=== PATIENT | female | born 1965 | race Caucasian/White ===

== ENCOUNTER → 2023-07-18 | Outpatient (CLI) | payer OTHER | END | disposition home or self-care (01) | LOC: CT 08:57 | PROVIDERS: ATTEND Internal Medicine | DX: J43.8 Other emphysema (principal); F17.210 Nicotine dependence, cigarettes, uncomplicated; K44.9 Diaphragmatic hernia without obstruction or gangrene; I25.10 Atherosclerotic heart disease of native coronary artery without angina pectoris ==

== ENCOUNTER → 2023-12-22 | Outpatient (CLI) | payer OTHER | END | disposition home or self-care (01) | LOC: CARD 14:49 | PROVIDERS: ATTEND Internal Medicine | DX: I08.0 Rheumatic disorders of both mitral and aortic valves (principal); I48.91 Unspecified atrial fibrillation ==

== ENCOUNTER 2024-01-16 16:48 | Inpatient (IN) | payer OTHER ==
[~2024-01-16] VITALS: Ht 180.3 cm; Wt 72.1 kg
[2024-01-16 17:10] VITALS: BP 140/89
[2024-01-16] MEDS ORDERED: SODIUM CHLORIDE 0.9% 1,000 ML IV ONE ×3 (17:15→21:38)
[2024-01-16 17:44] LABS: BASO % 0.1 % (0.0-1.0); EOS # 0.1 10*3/uL (0.0-0.4); EOS % 1.2 % (1.0-4.0); HEMATOCRIT 42.3 % (37.0-47.0); LYMPH # 1.2 10*3/uL (1.3-4.4); LYMPH % 14.1 % (27.0-41.0); MEAN CELL VOLUME 85.3 fl (81.0-99.0); MEAN CORPUSCULAR HGB 30.4 pg (27.0-31.0); MEAN CORPUSCULAR HGB CONC 35.7 g/dl (33.0-37.0); MEAN PLATELET VOLUME 10.4 fl (9.6-12.3); MONO # 0.7 10*3/uL (0.1-1.0); MONO % 7.9 % (3.0-9.0); NEUT # 6.3 10*3/uL (2.3-7.9); NEUT % 76.2 % (47.0-73.0); PLATELET COUNT AUTOMATED 225 10*3/uL (130-400); RED BLOOD COUNT 4.96 10*6/uL (4.10-5.10); RED CELL DISTRI WIDTH 12.4 % (0-14.5); WHITE BLOOD COUNT 8.2 10*3/uL (4.8-10.8)
[2024-01-16 18:01] LABS: BILIRUBIN Negative (Negative); BLOOD 2+ (Negative); CLARITY Clear (Clear); COLOR Yellow (Yellow); GLUCOSE 3+ (Negative); KETONE Negative (Negative); LEUKO ESTERASE Negative (Negative); NITRITE Negative (Negative); SPECIFIC GRAVITY >= 1.030 (1.001-1.030)
[2024-01-16 18:08] LABS: BACTERIA TRACE
[2024-01-16 18:45] LABS: ALKALINE PHOSPHATASE 177 U/L (46-116); BUN 13 mg/dl (9-23); CHLORIDE 92 mmol/L (98-107); LIPASE 45 U/L (12-53); SGPT/ALT 25 U/L (5-49); TOTAL PROTEIN 7.5 gm/dL (6.0-8.0)
[2024-01-16 18:47] LABS: POTASSIUM 4.3 mmol/L (3.4-5.1)
[2024-01-16] MEDS ORDERED: DILTIAZEM 24HR180 MG PO (20:05)
[2024-01-16] MEDS ORDERED: ELIQUIS5 M1 PO (20:06)
[2024-01-16] MEDS ORDERED: DIGOXIN125 MCG PO (20:06)
[2024-01-16] MEDS ORDERED: CLOPIDOGREL75 MG PO (20:07)
[2024-01-16] MEDS ORDERED: PANTOPRAZOLE SO40 MG PO (20:07)
[2024-01-16] MEDS ORDERED: ATORVASTATIN CA40 M1 PO (20:07)
[2024-01-16] MEDS ORDERED: PROPAFENONE HC300 MG PO (20:08)
[2024-01-16] MEDS ORDERED: CARVEDILOL25 MG PO (20:08)
[2024-01-16] MEDS ORDERED: ANORO ELLIPTA1 EACH INH (20:09)
[2024-01-16] MEDS ORDERED: PROAIR DIGIHAL90 MCG INH (20:09)
[2024-01-16] MEDS ORDERED: INSULIN REGULAR IN 0.9 % NACL 100 ML IV ONE (20:20)
[2024-01-16] MEDS ORDERED: POTASSIUM CHLORIDE 20 MEQ TAB PO PRN (21:00)
[2024-01-16] MEDS ORDERED: Ondansetron Hydrochloride 4 MG/2 ML VIAL IV PRN (21:00)
[2024-01-16] MEDS ORDERED: INSULIN REGULAR IN 0.9 % NACL 100 ML IV SCH (21:00)
[2024-01-16] MEDS ORDERED: POTASSIUM CHLORIDE 20 MEQ/100 ML BAG IV PRN (21:00)
[2024-01-16] MEDS ORDERED: SODIUM CHLORIDE 0.45% 1,000 ML IV ONE (21:10)
[2024-01-16 21:29] VITALS: BP 127/73
[2024-01-16] MEDS ORDERED: FLUCONAZOLE 150 MG TAB PO ONE (21:30)
[2024-01-16 21:45] VITALS: BP 125/69
[2024-01-16 22:14] LABS: BUN 10 mg/dl (9-23); CHLORIDE 103 mmol/L (98-107)
[2024-01-16 22:15] LABS: POTASSIUM 3.2 mmol/L (3.4-5.1)
[2024-01-16] MEDS ORDERED: DEXTROSE 5% SALINE 0.45% 1,000 ML IV SCH (22:30)
[2024-01-17] VITALS (7 sets, daily range): BP systolic 92–153; BP diastolic 51–81
[2024-01-17 02:36] LABS: BUN 7 mg/dl (9-23); CHLORIDE 109 mmol/L (98-107); POTASSIUM 3.4 mmol/L (3.4-5.1)
[2024-01-17 05:38] LABS: BUN 7 mg/dl (9-23); CHLORIDE 110 mmol/L (98-107); POTASSIUM 3.4 mmol/L (3.4-5.1)
[2024-01-17] MEDS ORDERED: DEXTROSE 5% SALINE 0.45% 1,000 ML IV SCH (05:45)
[2024-01-17 05:59] LABS: BASO % 0.1 % (0.0-1.0); EOS # 0.1 10*3/uL (0.0-0.4); HEMATOCRIT 35.5 % (37.0-47.0); LYMPH # 1.7 10*3/uL (1.3-4.4); LYMPH % 24.1 % (27.0-41.0); MEAN CELL VOLUME 85.3 fl (81.0-99.0); MEAN CORPUSCULAR HGB CONC 35.2 g/dl (33.0-37.0); MONO # 0.8 10*3/uL (0.1-1.0); MONO % 10.9 % (3.0-9.0); NEUT # 4.3 10*3/uL (2.3-7.9); NEUT % 62.3 % (47.0-73.0); PLATELET COUNT AUTOMATED 195 10*3/uL (130-400); RED BLOOD COUNT 4.16 10*6/uL (4.10-5.10); RED CELL DISTRI WIDTH 12.5 % (0-14.5); WHITE BLOOD COUNT 6.9 10*3/uL (4.8-10.8)
[2024-01-17] MEDS ORDERED: Pantoprazole Sodium 40 MG TAB PO SCH (06:00)
[2024-01-17] MEDS ORDERED: Insulin Glargine, Recombinan 1 UNIT/0.01 ML SC SCH (08:25)
[2024-01-17] MEDS ORDERED: Ondansetron Hydrochloride 4 MG/2 ML VIAL IV ONE (08:25)
[2024-01-17] MEDS ORDERED: APIXABAN 5 MG TAB PO SCH ×2 (08:56→10:00)
[2024-01-17] MEDS ORDERED: CARVEDILOL 25 MG TAB PO SCH ×3 (08:56→10:00)
[2024-01-17] MEDS ORDERED: Clopidogrel Hydrogen Sulfate 75 MG TAB PO SCH ×2 (10:00→18:00)
[2024-01-17] MEDS ORDERED: Ceftriaxone Sodium 1 GM in SYRINGE INFUSION 10 ML IV SCH (10:00)
[2024-01-17] MEDS ORDERED: ANORO ELLIPTA INH SCH (10:00)
[2024-01-17] MEDS ORDERED: DILTIAZEM CD 180 MG CAP PO SCH ×2 (10:00→18:00)
[2024-01-17] MEDS ORDERED: Propafenone Hydrochloride 150 MG TAB PO SCH (10:00)
[2024-01-17 10:16] LABS: BUN 7 mg/dl (9-23); CHLORIDE 110 mmol/L (98-107); POTASSIUM 3.5 mmol/L (3.4-5.1)
[2024-01-17] MEDS ORDERED: DEXTROSE 10 % IN WATER 250 ML IV PRN (11:45)
[2024-01-17] MEDS ORDERED: Miconazole Nitrate 2% 15 GM TUBE T SCH (13:45)
[2024-01-17] MEDS ORDERED: DIGOXIN 125 MCG TAB PO SCH ×2 (14:00→18:00)
[2024-01-17] MEDS ORDERED: INSULIN LISPRO 1 UNIT/0.01 ML SQ SCH (16:30)
[2024-01-17] MEDS ORDERED: ATORVASTATIN CALCIUM 40 MG TABLET PO SCH (18:00)
[2024-01-18] VITALS: BP 113/76
[2024-01-18 05:00] LABS: BUN 7 mg/dl (9-23); CHLORIDE 108 mmol/L (98-107); POTASSIUM 3.6 mmol/L (3.4-5.1)
[2024-01-18 08:00] VITALS: BP 117/72
[2024-01-18] MEDS ORDERED: LANTUS SOL100 UNIT/1 SC (09:39)
[2024-01-18] MEDS ORDERED: METFORMIN HCL500 M2 PO (09:39)
[2024-01-18] MEDS ORDERED: OMNICEF300 MG PO (11:04)
[2024-01-18 12:00] VITALS: BP 120/68
== END 2024-01-18 12:45 | disposition home or self-care (01) | DRG 637 ==
LOC: ED 16:48 → ICCU 20:44 → EDHOLD 20:44 → ICCU 21:22
PROVIDERS: Family Medicine; Internal Medicine; Student in an Organized Health Care Education/Training Program; ADMIT Internal Medicine; ATTEND Internal Medicine
DX: E11.00 Type 2 diabetes mellitus with hyperosmolarity without nonketotic hyperglycemic-hyperosmolar coma (NKHHC) (principal); N17.0 Acute kidney failure with tubular necrosis; N39.0 Urinary tract infection, site not specified; I25.10 Atherosclerotic heart disease of native coronary artery without angina pectoris; E11.65 Type 2 diabetes mellitus with hyperglycemia; B37.31 Acute candidiasis of vulva and vagina; F17.210 Nicotine dependence, cigarettes, uncomplicated; I48.0 Paroxysmal atrial fibrillation; R79.89 Other specified abnormal findings of blood chemistry; E87.8 Other disorders of electrolyte and fluid balance, not elsewhere classified; Z71.6 Tobacco abuse counseling; Z82.49 Family history of ischemic heart disease and other diseases of the circulatory system; Z83.6 Family history of other diseases of the respiratory system

== ENCOUNTER → 2024-01-24 | Outpatient (CLI) | payer OTHER ==
[~2024-01-24] MED LIST: ANORO ELLIPTA1 EACH INH; ATORVASTATIN CA40 M1 PO; CARVEDILOL25 MG PO; CLOPIDOGREL75 MG PO; DIGOXIN125 MCG PO; DILTIAZEM 24HR180 MG PO; ELIQUIS5 M1 PO; LANTUS SOL100 UNIT/1 SC; METFORMIN HCL500 M2 PO; OMNICEF300 MG PO; PANTOPRAZOLE SO40 MG PO; PROAIR DIGIHAL90 MCG INH; PROPAFENONE HC300 MG PO; Regadenoson 0.4 MG/5 ML SYR IV ONE; Technetium Tc 99M Tetrofosmi 0.23 MG KIT IJ SCH
== END | disposition home or self-care (01) ==
LOC: CARD 00:32
PROVIDERS: ATTEND Internal Medicine
DX: I47.29 Other ventricular tachycardia (principal); R94.31 Abnormal electrocardiogram [ECG] [EKG]; R07.9 Chest pain, unspecified

== ENCOUNTER → 2024-02-16 | Outpatient (CLI) | payer OTHER ==
[~2024-02-16] MED LIST changes: -Regadenoson 0.4 MG/5 ML SYR IV ONE; -Technetium Tc 99M Tetrofosmi 0.23 MG KIT IJ SCH
== END | disposition home or self-care (01) ==
LOC: MAMMO 07:52
PROVIDERS: ATTEND Internal Medicine
DX: Z12.31 Encounter for screening mammogram for malignant neoplasm of breast (principal)

== ENCOUNTER 2024-07-14 20:12 | Inpatient (IN) | payer OTHER ==
[~2024-07-14] VITALS: Ht 180.3 cm; Wt 69.9 kg
[2024-07-14 20:41] VITALS: BP 80/56
[2024-07-14] MEDS ORDERED: SODIUM CHLORIDE 0.9% 1,000 ML IV ONE (20:50)
[2024-07-14 21:03] LABS: BASO % 0.1 % (0.0-1.0); EOS # 0.4 10*3/uL (0.0-0.4); EOS % 4.2 % (1.0-4.0); HEMATOCRIT 35.4 % (37.0-47.0); LYMPH # 0.3 10*3/uL (1.3-4.4); LYMPH % 3.4 % (27.0-41.0); MEAN CELL VOLUME 94.1 fl (81.0-99.0); MEAN CORPUSCULAR HGB 31.6 pg (27.0-31.0); MEAN CORPUSCULAR HGB CONC 33.6 g/dl (33.0-37.0); MEAN PLATELET VOLUME 9.7 fl (9.6-12.3); MONO # 0.8 10*3/uL (0.1-1.0); MONO % 8.4 % (3.0-9.0); NEUT # 7.9 10*3/uL (2.3-7.9); NEUT % 83.6 % (47.0-73.0); PLATELET COUNT AUTOMATED 179 10*3/uL (130-400); RED BLOOD COUNT 3.76 10*6/uL (4.10-5.10); RED CELL DISTRI WIDTH 13.2 % (0-14.5); WHITE BLOOD COUNT 9.5 10*3/uL (4.8-10.8)
[2024-07-14 21:19] LABS: POTASSIUM 3.4 mmol/L (3.4-5.1)
[2024-07-14] MEDS ORDERED: Ondansetron Hydrochloride 4 MG/2 ML VIAL IV ONE (21:20)
[2024-07-14] MEDS ORDERED: SODIUM CHLORIDE 0.9% 1,000 ML IV SCH (21:45)
[2024-07-14] MEDS ORDERED: Vancomycin Hydrochloride 250 ML IV ONE (21:45)
[2024-07-14] MEDS ORDERED: Cefepime Hydrochloride 1 GM in SODIUM CHLORIDE 0.9% 50 ML IV SCH (22:00)
[2024-07-14] MEDS ORDERED: MORPHINE Sulfate 2 MG/ML SYR IV ONE (22:50)
[2024-07-14] MEDS ORDERED: Promethazine Hydrochloride 25 MG/ML VIAL IV ONE (22:50)
[2024-07-14 23:17] VITALS: BP 82/47
[2024-07-14 23:38] LABS: BILIRUBIN 2+ (Negative); BLOOD Negative (Negative); CLARITY Turbid (Clear); COLOR Dark Yellow (Yellow); GLUCOSE Negative (Negative); KETONE Trace (Negative); LEUKO ESTERASE 1+ (Negative); NITRITE Negative (Negative); SPECIFIC GRAVITY 1.025 (1.001-1.030)
[2024-07-15 00:10] LABS: BACTERIA 1+; EPITHELIAL CELLS 41-50; WBC 31-40 wbc/hpf (0-5)
[2024-07-15] MEDS ORDERED: MULTAQ400 MG PO (01:24)
[2024-07-15] MEDS ORDERED: PANTOPRAZOLE SO40 MG PO (01:26)
[2024-07-15] MEDS ORDERED: HYDROXYZINE HCL25 MG PO (01:27)
[2024-07-15] MEDS ORDERED: Acetaminophen/Hydrocodone 5 MG/325 MG TABLET PO PRN (01:30)
[2024-07-15] MEDS ORDERED: MORPHINE Sulfate 2 MG/ML SYR IV PRN (01:30)
[2024-07-15] MEDS ORDERED: BISACODYL 10 MG SUPP R PRN (01:30)
[2024-07-15] MEDS ORDERED: Magnesium Hydroxide 30 ML UDC PO PRN (01:30)
[2024-07-15] MEDS ORDERED: BISACODYL 5 MG TAB PO PRN (01:30)
[2024-07-15] MEDS ORDERED: TEMAZEPAM 15 MG CAP PO PRN (01:30)
[2024-07-15] MEDS ORDERED: ACETAMINOPHEN 650 MG SUPP R PRN (01:30)
[2024-07-15] MEDS ORDERED: ACETAMINOPHEN 325 MG TAB PO PRN (01:30)
[2024-07-15] MEDS ORDERED: Ondansetron Hydrochloride 4 MG/2 ML VIAL IV PRN (01:30)
[2024-07-15] MEDS ORDERED: SODIUM CHLORIDE 0.9% 1,000 ML IV SCH (01:40)
[2024-07-15] MEDS ORDERED: DEXTROSE 10 % IN WATER 250 ML IV PRN (01:40)
[2024-07-15] MEDS ORDERED: Cefepime Hydrochloride 1 GM in SODIUM CHLORIDE 0.9% 50 ML IV SCH (01:40)
[2024-07-15 02:00] VITALS: BP 107/58
[2024-07-15] MEDS ORDERED: SODIUM CHLORIDE 0.9% 1,000 ML IV ONE (03:05)
[2024-07-15 04:00] VITALS: BP 100/64
[2024-07-15 05:11] LABS: ACT PARTIAL THROMBO TIME 33.6 SECONDS (20.0-32.1)
[2024-07-15 05:23] LABS: FREE T4 1.13 ng/dl (0.89-1.76); POTASSIUM 3.5 mmol/L (3.4-5.1); TOTAL PROTEIN 5.3 gm/dL (6.0-8.0)
[2024-07-15] MEDS ORDERED: APIXABAN 5 MG TAB PO SCH (06:00)
[2024-07-15] MEDS ORDERED: CARVEDILOL 25 MG TAB PO SCH (06:00)
[2024-07-15 06:17] LABS: EOS # 0.2 10*3/uL (0.0-0.4); HEMATOCRIT 29.4 % (37.0-47.0); LYMPH # 0.5 10*3/uL (1.3-4.4); LYMPH % 11.2 % (27.0-41.0); MEAN CELL VOLUME 93.3 fl (81.0-99.0); MEAN CORPUSCULAR HGB 31.7 pg (27.0-31.0); MEAN PLATELET VOLUME 9.9 fl (9.6-12.3); MONO # 0.5 10*3/uL (0.1-1.0); MONO % 12.1 % (3.0-9.0); NEUT % 72.2 % (47.0-73.0); PLATELET COUNT AUTOMATED 134 10*3/uL (130-400); RED BLOOD COUNT 3.15 10*6/uL (4.10-5.10); RED CELL DISTRI WIDTH 13.4 % (0-14.5); WHITE BLOOD COUNT 4.2 10*3/uL (4.8-10.8)
[2024-07-15 07:07] LABS: VITAMIN D, 25-HYDROXY 30.7 ng/mL (30-100)
[2024-07-15] MEDS ORDERED: INSULIN LISPRO 1 UNIT/0.01 ML SQ SCH (07:30)
[2024-07-15 08:00] VITALS: BP 145/64
[2024-07-15] MEDS ORDERED: MAGNESIUM SULFATE 50 ML IV ONE (09:35)
[2024-07-15] MEDS ORDERED: CEFEPIME HCL IN DEXTROSE 5 % 50 ML IV SCH (10:00)
[2024-07-15] MEDS ORDERED: DRONEDARONE HYDROCHLORIDE 400 MG TAB PO SCH (10:00)
[2024-07-15] MEDS ORDERED: HEPARIN SODIUM 5,000 UNIT/ML VIAL SC SCH (10:00)
[2024-07-15 12:00] VITALS: BP 118/71
[2024-07-15 16:00] VITALS: BP 101/63
[2024-07-15] MEDS ORDERED: DILTIAZEM CD 180 MG CAP PO SCH (18:00)
[2024-07-15] MEDS ORDERED: ATORVASTATIN CALCIUM 40 MG TABLET PO SCH (18:00)
[2024-07-15] MEDS ORDERED: Clopidogrel Hydrogen Sulfate 75 MG TAB PO SCH (18:00)
[2024-07-15 20:00] VITALS: BP 102/74
[2024-07-15] MEDS ORDERED: Insulin Glargine, Recombinan 1 UNIT/0.01 ML SC SCH (22:00)
[2024-07-16] VITALS: BP 128/74
[2024-07-16 04:00] VITALS: BP 138/81
[2024-07-16 06:10] LABS: BASO % 0.5 % (0.0-1.0); EOS # 0.3 10*3/uL (0.0-0.4); EOS % 8.4 % (1.0-4.0); HEMATOCRIT 31.1 % (37.0-47.0); LYMPH # 0.7 10*3/uL (1.3-4.4); LYMPH % 20.1 % (27.0-41.0); MEAN CELL VOLUME 94.5 fl (81.0-99.0); MEAN CORPUSCULAR HGB 32.2 pg (27.0-31.0); MEAN CORPUSCULAR HGB CONC 34.1 g/dl (33.0-37.0); MEAN PLATELET VOLUME 9.8 fl (9.6-12.3); MONO # 0.6 10*3/uL (0.1-1.0); NEUT % 54.5 % (47.0-73.0); PLATELET COUNT AUTOMATED 149 10*3/uL (130-400); RED BLOOD COUNT 3.29 10*6/uL (4.10-5.10); RED CELL DISTRI WIDTH 13.3 % (0-14.5); WHITE BLOOD COUNT 3.7 10*3/uL (4.8-10.8)
[2024-07-16 06:44] LABS: ALKALINE PHOSPHATASE 61 U/L (46-116); CHLORIDE 111 mmol/L (98-107); POTASSIUM 3.9 mmol/L (3.4-5.1); SGPT/ALT 22 U/L (5-49); TOTAL PROTEIN 5.6 gm/dL (6.0-8.0)
[2024-07-16 06:46] LABS: BUN 19 mg/dl (9-23)
[2024-07-16 08:00] VITALS: BP 134/79
[2024-07-16] MEDS ORDERED: CEFEPIME HCL IN DEXTROSE 5 % 50 ML IV SCH (08:00)
[2024-07-16] MEDS ORDERED: CYANOCOBALAMIN 500 MCG TAB PO SCH (10:00)
[2024-07-16] MEDS ORDERED: Promethazine Hydrochloride 25 MG/ML VIAL IV ONE (10:40)
[2024-07-16 12:00] VITALS: BP 160/85
[2024-07-16 20:00] VITALS: BP 160/91
[2024-07-17] VITALS: BP 117/83
[2024-07-17 05:48] LABS: CHLORIDE 109 mmol/L (98-107)
[2024-07-17 05:49] LABS: BUN 9 mg/dl (9-23)
[2024-07-17 06:25] LABS: HEMATOCRIT 31.3 % (37.0-47.0); MEAN CELL VOLUME 93.4 fl (81.0-99.0); MEAN CORPUSCULAR HGB 31.3 pg (27.0-31.0); MEAN CORPUSCULAR HGB CONC 33.5 g/dl (33.0-37.0); MEAN PLATELET VOLUME 9.6 fl (9.6-12.3); PLATELET COUNT AUTOMATED 150 10*3/uL (130-400); RED BLOOD COUNT 3.35 10*6/uL (4.10-5.10); WHITE BLOOD COUNT 3.7 10*3/uL (4.8-10.8)
[2024-07-17 06:32] LABS: MANUAL DIFF REFLEX YES
[2024-07-17 07:03] LABS: ATYPICAL LYMPHS 3 % (0-0); BASOPHILS 1 % (0-1); OVALOCYTES FEW; PLATELET SUFFICIENCY NORMAL (NORMAL); POLYCHROMASIA SLIGHT; TOTAL CELLS COUNTED 100 #CELLS
[2024-07-17] MEDS ORDERED: hydrOXYzine pamoate 25 MG CAP PO ONE (07:45)
[2024-07-17 08:00] VITALS: BP 170/96
[2024-07-17] MEDS ORDERED: MAGNESIUM SULFATE 50 ML IV ONE (08:50)
[2024-07-17 09:00] VITALS: BP 158/91
[2024-07-17 09:30] VITALS: BP 143/86
[2024-07-17] MEDS ORDERED: methylPREDNISolone sod succ 125 MG VIAL IV ONE (11:20)
[2024-07-17] MEDS ORDERED: DOXYCYCLINE HY100 M3 PO (11:39)
[2024-07-17] MEDS ORDERED: MAGOX 400400 MG PO (11:39)
[2024-07-17] MEDS ORDERED: PHARMASSURE V500 MCG PO (11:39)
[2024-07-17] MEDS ORDERED: PREDNISONE10 MG PO (11:39)
[2024-07-17] MEDS ORDERED: Insulin Glargine, Recombinan 1 UNIT/0.01 ML SC SCH (22:00)
== END 2024-07-17 12:17 | disposition home or self-care (01) | DRG 689 ==
LOC: ED 20:12 → ICCU 07-15 00:31 → EDHOLD 07-15 00:31 → ICCU 07-15 01:29
PROVIDERS: Internal Medicine; Student in an Organized Health Care Education/Training Program; ADMIT Internal Medicine; ATTEND Internal Medicine
DX: N30.00 Acute cystitis without hematuria (principal); N17.0 Acute kidney failure with tubular necrosis; E87.20 Acidosis, unspecified; I95.9 Hypotension, unspecified; I48.91 Unspecified atrial fibrillation; I25.10 Atherosclerotic heart disease of native coronary artery without angina pectoris; E11.65 Type 2 diabetes mellitus with hyperglycemia; F17.210 Nicotine dependence, cigarettes, uncomplicated; D64.9 Anemia, unspecified; I10 Essential (primary) hypertension; Z82.49 Family history of ischemic heart disease and other diseases of the circulatory system; Z82.5 Family history of asthma and other chronic lower respiratory diseases; Z95.5 Presence of coronary angioplasty implant and graft; Z71.6 Tobacco abuse counseling; Z79.4 Long term (current) use of insulin; Z79.899 Other long term (current) drug therapy

== ENCOUNTER → 2024-11-20 | Outpatient (CLI) | payer OTHER ==
[~2024-11-20] MED LIST changes: +DOXYCYCLINE HY100 M3 PO; +HYDROXYZINE HCL25 MG PO; +MAGOX 400400 MG PO; +MULTAQ400 MG PO; +PHARMASSURE V500 MCG PO; +PREDNISONE10 MG PO
== END | disposition home or self-care (01) ==
LOC: CT 16:00
PROVIDERS: ATTEND Internal Medicine
DX: Z12.2 Encounter for screening for malignant neoplasm of respiratory organs (principal); J43.9 Emphysema, unspecified; R91.8 Other nonspecific abnormal finding of lung field; J84.10 Pulmonary fibrosis, unspecified; I25.10 Atherosclerotic heart disease of native coronary artery without angina pectoris; F17.210 Nicotine dependence, cigarettes, uncomplicated